=== PATIENT | male | born 1990 | race Two or more races ===

== ENCOUNTER 2019-03-09 15:58 | Emergency (ER) | payer SELFPAY ==
[~2019-03-09] VITALS: Ht 167.6 cm; Wt 59.0 kg
[2019-03-09 16:15] VITALS: BP 116/75
[2019-03-09] MEDS ORDERED: tramadol (16:21)
[2019-03-09] MEDS ORDERED: ASPI-1393 PO (16:21)
== END 2019-03-09 21:30 | disposition left against medical advice (07) ==
LOC: ER 16:58
DX: Z53.21 Procedure and treatment not carried out due to patient leaving prior to being seen by health care provider (principal)